=== PATIENT | female | born 1970 | race Caucasian/White ===

== ENCOUNTER 2018-06-18 15:02 | Inpatient (IN) | payer MEDICAID ==
[~2018-06-18] VITALS: Ht 152.4 cm; Wt 103.0 kg
[2018-06-18 15:10] VITALS: Ht 152.4 cm; Wt 103.0 kg
[2018-06-18 15:57] LABS: PLATELET COUNT 277 x10^3mcL (130-400); RED CELL DISTRIBUTION WIDTH 14.8 % (11.5-14.5)
[2018-06-18 16:18] LABS: CALCIUM 9.1 mg/dL (8.5-10.1); CARBON DIOXIDE 27.4 mmol/L (21-32); CHLORIDE SERUM 101 mmol/L (98-107); CREATININE SERUM 0.9 mg/dL (0.6-1.0); GFR1 > 60 mL/min; GLUCOSE SERUM 162 mg/dL (74-106); POTASSIUM SERUM 3.9 mmol/L (3.5-5.1); SODIUM SERUM 139 mmol/L (136-145)
[2018-06-18 16:24] LABS: ALKALINE PHOSPHATASE 91 U/L (46-116); ALT/SGPT 35 U/L (14-59); AST/SGOT 52 U/L (15-37)
[2018-06-18 16:47] LABS: TOTAL PROTEIN, SERUM 8.6 g/dL (6.4-8.2)
[2018-06-18 17:05] LABS: LIPASE 6933 IU/L (73-393)
[2018-06-18] MEDS ORDERED: LOP600 PO (17:58)
[2018-06-18 20:09] LABS: FREE T4 1.01 ng/dL (0.76-1.46); FREE THYROXINE INDEX 2.8 ug/dL (1.4-4.5); T4(THYROXINE) 8.6 ug/dL (4.7-13.3)
[2018-06-18 20:10] LABS: T3 TOTAL 1.12 ng/mL
[2018-06-18 20:11] LABS: PHOSPHOROUS 4.3 mg/dL (2.5-4.9)
[2018-06-18 20:14] LABS: CHOLESTEROL/HDL RATIO 5.1
[2018-06-18 21:21] VITALS: BP 109/57
[2018-06-19 01:32] LABS: UA SPECIFIC GRAVITY 1.015 (1.005-1.035); microscopic required? YES; urine erythrocyte NEGATIVE (NEGATIVE)
[2018-06-19 02:04] LABS: AMPHETAMINE QUAL UR NONE DETECTED (See below)
[2018-06-19 05:29] VITALS: BP 99/51
[2018-06-19 07:37] LABS: CALCIUM 7.9 mg/dL (8.5-10.1); CARBON DIOXIDE 27.7 mmol/L (21-32); CHLORIDE SERUM 107 mmol/L (98-107); CREATININE SERUM 0.7 mg/dL (0.6-1.0); GFR1 > 60 mL/min; GLUCOSE SERUM 92 mg/dL (74-106); LIPASE 268 IU/L (73-393); MAGNESIUM 2.1 mg/dL (1.8-2.4); PHOSPHOROUS 3.3 mg/dL (2.5-4.9); POTASSIUM SERUM 4.5 mmol/L (3.5-5.1); SODIUM SERUM 141 mmol/L (136-145)
[2018-06-19 08:06] LABS: BASOPHIL % 0.4 % (0-2); PLATELET COUNT 209 x10^3mcL (130-400)
[2018-06-19 09:05] VITALS: BP 90/41
[2018-06-19 10:00] VITALS: BP 97/58
[2018-06-19 16:45] VITALS: BP 102/58
[2018-06-19 21:24] VITALS: BP 114/58
[2018-06-20 05:13] VITALS: BP 105/43
[2018-06-20 06:55] LABS: BASOPHIL % 0.3 % (0-2); PLATELET COUNT 169 x10^3mcL (130-400)
[2018-06-20 07:08] LABS: RED CELL DISTRIBUTION WIDTH 15.1 % (11.5-14.5)
[2018-06-20 07:11] LABS: AMYLASE 38 U/L (25-115); CALCIUM 7.7 mg/dL (8.5-10.1); CARBON DIOXIDE 24.8 mmol/L (21-32); CHLORIDE SERUM 110 mmol/L (98-107); CREATININE SERUM 0.5 mg/dL (0.6-1.0); GFR1 > 60 mL/min; GLUCOSE SERUM 82 mg/dL (74-106); LIPASE 99 IU/L (73-393); POTASSIUM SERUM 4.1 mmol/L (3.5-5.1); SODIUM SERUM 141 mmol/L (136-145)
[2018-06-20 10:28] VITALS: BP 127/55
[2018-06-20 10:32] VITALS: BP 127/55
== END 2018-06-20 12:52 | disposition home or self-care (01) | DRG 282 ==
LOC: ED 15:02 → MU 19:35
PROVIDERS: Emergency Medicine; ADMIT Internal Medicine
DX: K85.90 Acute pancreatitis without necrosis or infection, unspecified (principal); K65.9 Peritonitis, unspecified; Z68.41 Body mass index [BMI] 40.0-44.9, adult; R73.03 Prediabetes; E78.5 Hyperlipidemia, unspecified; E66.01 Morbid (severe) obesity due to excess calories; F17.210 Nicotine dependence, cigarettes, uncomplicated
CPT/HCPCS: 84439; J7030; Q0092; Q0162